=== PATIENT | male | born 1945 | race Caucasian/White ===

== ENCOUNTER → 2016-12-12 | Outpatient (CLI) | payer MEDICARE, OTHER ==
[~2016-12-12] VITALS: Ht 185.4 cm; Wt 115.2 kg
[~2016-12-12] MED LIST: ALLO100T PO; ATEN100T PO; ATOR40TA PO; CYCL10TA PO; LIDOCAINE 2% INJ 100 MG/5 ML SDV (FOR ANES.) As Ordered ONE; LISI-542 PO; NEXI20CA PO; NS 1,000 ML IV SCH; PROPOFOL 200 MG/20 ML VIAL As Ordered ONE; TRAM50TA2 PO
--- NOTE | 2016-12-12 12:14 | ROOR ---
Patient Name: Barry Taylor Procedure Date: 12/12/2016 11:54 AM Date of : 1945 Age: 71 Room: [facility] Gender: Male Note Status: Finalized Procedure: Colonoscopy Indications: High risk colon cancer surveillance: Personal history of colonic polyps, Last colonoscopy: July 2013 Providers: Usman GIVENS MD Referring MD: [facility], [employer] [facility] [employer] [facility], Admin., [facility], [facility], [facility], Admin. Requesting Provider: Medicines: Monitored Anesthesia Care Complications: No immediate complications. Procedure: Pre-Anesthesia Assessment: - The heart rate, respiratory rate, oxygen saturations, blood pressure, adequacy of pulmonary ventilation, and response to care were monitored throughout the procedure. The Colonoscope was introduced through the anus and advanced to the terminal ileum, with identification of the appendiceal orifice and IC valve. The colonoscopy was performed without difficulty. The patient tolerated the procedure well. The quality of the bowel preparation was good. Findings: The perianal and digital rectal examinations were normal. (Exam: Complete, Prep: Good or Excellent.) A few diverticula were found in the sigmoid colon. Small Internal Hemorrhoids. The entire examined colon appeared normal on direct and retroflexion views. Impression: - Mild diverticulosis in the sigmoid colon. - Small Internal Hemorrhoids. - The entire colon is normal on direct and retroflexion views. - No specimens collected. Recommendation: - Repeat colonoscopy in 5 years for adenoma surveillance. Usman Givens MD Usman GIVENS MD 12/12/2016 12:14:15 PM This report has been signed electronically. Number of Addenda: 0 Note Initiated On: 12/12/2016 11:54 AM Estimated Blood Loss: Estimated blood loss: none.
[2016-12-12 12:35] VITALS: BP 122/87
== END | disposition home or self-care (01) ==
LOC: M OPP 10:09
PROVIDERS: ATTEND Internal Medicine Gastroenterology
DX: Z12.11 Encounter for screening for malignant neoplasm of colon (principal); K57.30 Diverticulosis of large intestine without perforation or abscess without bleeding; K64.8 Other hemorrhoids; Z86.010 Personal history of colon polyps; I10 Essential (primary) hypertension; E78.5 Hyperlipidemia, unspecified; M10.9 Gout, unspecified; R12 Heartburn; M19.90 Unspecified osteoarthritis, unspecified site; M54.9 Dorsalgia, unspecified; Z79.899 Other long term (current) drug therapy; Z80.42 Family history of malignant neoplasm of prostate
CPT/HCPCS: 99156; G0105

== ENCOUNTER → 2017-09-17 | Outpatient (REF) | payer MEDICARE, OTHER ==
[~2017-09-17] MED LIST changes: -ATOR40TA PO; +ATOR40TA75 PO; -LIDOCAINE 2% INJ 100 MG/5 ML SDV (FOR ANES.) As Ordered ONE; -NS 1,000 ML IV SCH; -PROPOFOL 200 MG/20 ML VIAL As Ordered ONE
[2017-09-17 14:57] LABS: BASO # 0.1 10^3/uL (0.0-0.2); BASO % 1.2 % (0.0-1.0); EOS # 0.1 10^3/uL (0.0-0.50); EOS % 1.9 % (0.0-3.0); IMMATURE GRANULOCYTE % 0.8 % (0-0); LYMPH # 1.3 10^3/uL (1.5-4.5); LYMPH % 27.3 % (24.0-44.0); MEAN CORPUSCULAR HEMOGLOBIN 31.5 pg (27.0-33.0); MEAN CORPUSCULAR VOLUME 92.6 fl (80.0-96.0); MONO # 0.5 10^3/uL (0.0-0.8); MONO % 9.3 % (0.0-5.0); NEUTROPHILS # 2.9 10^3/uL (1.8-7.7); NEUTROPHILS % 59.5 % (36.0-66.0); PLATELET COUNT, AUTOMATED 276 10^3/uL (150-450); RED CELL DISTRIBUTION WIDTH 12.1 % (11.5-14.5); WHITE BLOOD COUNT 4.8 10^3/uL (4.0-10.0)
[2017-09-17 15:25] LABS: ALBUMIN/GLOBULIN RATIO 1.18 (1.00-1.93); ALKALINE PHOSPHATASE 91 U/L (45-117); ALT/SGPT 27 U/L (12-78); ANION GAP 10 MEQ/L (8-16); AST/SGOT 26 U/L (7-37); BILIRUBIN,TOTAL 0.9 MG/DL (0.2-1.0); BLOOD UREA NITROGEN 16 MG/DL (7-18); CALCIUM LEVEL 8.3 MG/DL (8.8-10.2); CARBON DIOXIDE LEVEL 26 MEQ/L (21-32); CHLORIDE LEVEL 103 MEQ/L (98-107); CHOLESTEROL LEVEL 154 MG/DL (<200); GLOMERULAR FILTRATION RATE > 60.0 (>42); GLUCOSE, FASTING 93 MG/DL (83-110); POTASSIUM SERUM 3.9 MEQ/L (3.5-5.1); SODIUM LEVEL 139 MEQ/L (136-145); TOTAL PROTEIN 7.4 GM/DL (6.4-8.2); TRIGLYCERIDES LEVEL 178 MG/DL (<150)
== END ==
LOC: M SFHCSACK 10:43
PROVIDERS: ATTEND Physician Assistant
DX: I10 Essential (primary) hypertension (principal); E78.5 Hyperlipidemia, unspecified; Z13.21 Encounter for screening for nutritional disorder; Z12.5 Encounter for screening for malignant neoplasm of prostate; Z79.899 Other long term (current) drug therapy
CPT/HCPCS: 80053; 80061; 82306; 85025; G0103

== ENCOUNTER 2017-11-17 16:59 | Emergency (ER) | payer MEDICARE, OTHER | END 2017-11-17 21:40 | disposition home or self-care (01) | LOC: M ED 16:59 | DX: I10 Essential (primary) hypertension (principal); E78.9 Disorder of lipoprotein metabolism, unspecified; K21.9 Gastro-esophageal reflux disease without esophagitis; M10.9 Gout, unspecified; Z79.899 Other long term (current) drug therapy | CPT/HCPCS: 93005 ==

== ENCOUNTER → 2018-05-04 | Outpatient (REF) | payer MEDICARE, OTHER ==
[2018-05-04 14:37] LABS: BASO # 0.1 10^3/uL (0.0-0.2); EOS # 0.1 10^3/uL (0.0-0.50); EOS % 2.3 % (0.0-3.0); HEMOGLOBIN 14.4 g/dl (13.5-17.5); IMMATURE GRANULOCYTE % 0.4 % (0-3.0); LYMPH # 1.7 10^3/uL (1.5-4.5); LYMPH % 32.7 % (24.0-44.0); MEAN CORPUSCULAR HEMOGLOBIN 30.4 pg (27.0-33.0); MEAN CORPUSCULAR HGB CONC 33.5 g/dl (32.0-36.5); MEAN CORPUSCULAR VOLUME 90.7 fl (80.0-96.0); MONO # 0.5 10^3/uL (0.0-0.8); NEUTROPHILS # 2.8 10^3/uL (1.8-7.7); NEUTROPHILS % 54.6 % (36.0-66.0); PLATELET COUNT, AUTOMATED 248 10^3/uL (150-450); RED BLOOD COUNT 4.74 10^6/uL (4.30-6.10); RED CELL DISTRIBUTION WIDTH 13.2 % (11.5-14.5); WHITE BLOOD COUNT 5.1 10^3/uL (4.0-10.0)
[2018-05-04 15:09] LABS: ALBUMIN 3.8 GM/DL (3.2-5.2); ALBUMIN/GLOBULIN RATIO 1.23 (1.00-1.93); ALKALINE PHOSPHATASE 82 U/L (45-117); ALT/SGPT 21 U/L (12-78); ANION GAP 8 MEQ/L (8-16); AST/SGOT 21 U/L (7-37); BILIRUBIN,TOTAL 0.9 MG/DL (0.2-1.0); BLOOD UREA NITROGEN 14 MG/DL (7-18); CALCIUM LEVEL 8.9 MG/DL (8.8-10.2); CARBON DIOXIDE LEVEL 29 MEQ/L (21-32); CHLORIDE LEVEL 107 MEQ/L (98-107); CREATININE FOR GFR 0.93 MG/DL (0.70-1.30); GLOMERULAR FILTRATION RATE > 60.0 (>42); GLUCOSE, FASTING 94 MG/DL (70-100); SODIUM LEVEL 144 MEQ/L (136-145); TOTAL PROTEIN 6.9 GM/DL (6.4-8.2)
[2018-05-04 15:12] LABS: POTASSIUM SERUM 5.3 MEQ/L (3.5-5.1)
[2018-05-04 15:22] LABS: TOTAL 25(OH) VITAMIN D 38.1 NG/ML (30.0-100.0)
== END ==
LOC: M SFHCSACK 08:45
DX: E78.5 Hyperlipidemia, unspecified (principal); I10 Essential (primary) hypertension; E55.9 Vitamin D deficiency, unspecified; Z79.899 Other long term (current) drug therapy
CPT/HCPCS: 80053

== ENCOUNTER → 2018-12-07 | Outpatient (REF) | payer MEDICARE, OTHER ==
[~2018-12-07] MED LIST changes: +OMEP10CASR PO; +TYLE1TAB5 PO
[2018-12-07 15:00] LABS: BASO # 0.1 10^3/uL (0.0-0.2); BASO % 0.8 % (0.0-1.0); EOS # 0.1 10^3/uL (0.0-0.50); HEMATOCRIT 45.6 % (42.0-52.0); HEMOGLOBIN 15.4 g/dl (13.5-17.5); LYMPH # 1.8 10^3/uL (1.5-4.5); LYMPH % 29.7 % (24.0-44.0); MEAN CORPUSCULAR HEMOGLOBIN 30.3 pg (27.0-33.0); MEAN CORPUSCULAR HGB CONC 33.8 g/dl (32.0-36.5); MEAN CORPUSCULAR VOLUME 89.8 fl (80.0-96.0); MONO # 0.5 10^3/uL (0.0-0.8); NEUTROPHILS # 3.6 10^3/uL (1.8-7.7); NEUTROPHILS % 60.2 % (36.0-66.0); PLATELET COUNT, AUTOMATED 314 10^3/uL (150-450); RED BLOOD COUNT 5.08 10^6/uL (4.30-6.10)
[2018-12-07 15:04] LABS: ALT/SGPT 31 U/L (12-78); BILIRUBIN,TOTAL 1.2 MG/DL (0.2-1.0); BLOOD UREA NITROGEN 12 MG/DL (7-18); CALCIUM LEVEL 9.2 MG/DL (8.8-10.2); CARBON DIOXIDE LEVEL 28 MEQ/L (21-32); CHLORIDE LEVEL 103 MEQ/L (98-107); CHOLESTEROL LEVEL 140 MG/DL (<200); CHOLESTEROL RISK RATIO 2.916 (<5); CREATININE FOR GFR 1.02 MG/DL (0.70-1.30); GLOMERULAR FILTRATION RATE > 60.0 (>42); GLUCOSE, FASTING 109 MG/DL (70-100); HDL CHOLESTEROL 48 MG/DL (>40); LDL CHOLESTEROL 62 MG/DL (<100); NON-HDL-C 92 MG/DL; POTASSIUM SERUM 4.5 MEQ/L (3.5-5.1); SODIUM LEVEL 140 MEQ/L (136-145); TOTAL PROTEIN 7.1 GM/DL (6.4-8.2); TRIGLYCERIDES LEVEL 150 MG/DL (<150)
[2018-12-07 15:14] LABS: TOTAL 25(OH) VITAMIN D 51.6 NG/ML (30.0-100.0)
== END ==
LOC: M SFHCSACK 11:20
PROVIDERS: ATTEND Physician Assistant
DX: I10 Essential (primary) hypertension (principal); E78.5 Hyperlipidemia, unspecified; E55.9 Vitamin D deficiency, unspecified; E66.9 Obesity, unspecified; Z68.33 Body mass index [BMI] 33.0-33.9, adult

== ENCOUNTER → 2019-08-04 | Outpatient (REF) | payer MEDICARE, OTHER ==
[2019-08-04 14:20] LABS: BASO # 0.1 10^3/uL (0.0-0.2); BASO % 1.1 % (0.0-1.0); EOS # 0.1 10^3/uL (0.0-0.5); EOS % 2.2 % (0.0-3.0); HEMATOCRIT 44.1 % (42.0-52.0); HEMOGLOBIN 14.3 g/dl (13.5-17.5); LYMPH # 1.4 10^3/uL (1.5-5.0); LYMPH % 31.5 % (24.0-44.0); MEAN CORPUSCULAR HEMOGLOBIN 30.8 pg (27.0-33.0); MEAN CORPUSCULAR HGB CONC 32.4 g/dl (32.0-36.5); MEAN CORPUSCULAR VOLUME 94.8 fl (80.0-96.0); MONO # 0.4 10^3/uL (0.0-0.8); MONO % 9.2 % (0.0-5.0); NEUTROPHILS # 2.5 10^3/uL (1.5-8.5); NEUTROPHILS % 55.6 % (36.0-66.0); PLATELET COUNT, AUTOMATED 235 10^3/uL (150-450); RED BLOOD COUNT 4.65 10^6/uL (4.30-6.10); WHITE BLOOD COUNT 4.5 10^3/uL (4.0-10.0)
[2019-08-04 14:25] LABS: ALBUMIN 3.6 GM/DL (3.2-5.2); ALT/SGPT 19 U/L (12-78); BILIRUBIN,TOTAL 0.9 MG/DL (0.2-1.0); BLOOD UREA NITROGEN 14 MG/DL (7-18); CALCIUM LEVEL 8.3 MG/DL (8.8-10.2); CARBON DIOXIDE LEVEL 30 MEQ/L (21-32); CHLORIDE LEVEL 105 MEQ/L (98-107); CHOLESTEROL LEVEL 149 MG/DL (<200); CHOLESTEROL RISK RATIO 2.614 (<5); CREATININE FOR GFR 0.96 MG/DL (0.70-1.30); GLOMERULAR FILTRATION RATE > 60.0 (>42); GLUCOSE, FASTING 94 MG/DL (70-100); HDL CHOLESTEROL 57 MG/DL (>40); LDL CHOLESTEROL 55 MG/DL (<100); NON-HDL-C 92 MG/DL; POTASSIUM SERUM 4.1 MEQ/L (3.5-5.1); SODIUM LEVEL 141 MEQ/L (136-145); TOTAL PROTEIN 6.5 GM/DL (6.4-8.2); TRIGLYCERIDES LEVEL 184 MG/DL (<150)
[2019-08-04 14:34] LABS: TOTAL 25(OH) VITAMIN D 26.7 NG/ML (30.0-100.0)
== END ==
LOC: M SFHCSACK 09:44
PROVIDERS: ATTEND Physician Assistant
DX: E55.9 Vitamin D deficiency, unspecified (principal); E78.5 Hyperlipidemia, unspecified; I10 Essential (primary) hypertension; Z80.42 Family history of malignant neoplasm of prostate
CPT/HCPCS: 36415; 80053; 80061; 82306; 85025; G0103

== ENCOUNTER → 2022-03-01 | Outpatient (CLI) | payer MEDICARE, OTHER ==
[~2022-03-01] MED LIST changes: +CYCL-707 PO; -CYCL10TA PO; -LISI-542 PO; +LISI5TAB11 PO
[2022-03-01 11:21] LABS: HEMATOCRIT 41.2 % (42.0-52.0); HEMOGLOBIN 13.5 g/dl (13.5-17.5); MEAN CORPUSCULAR HEMOGLOBIN 31.3 pg (27.0-33.0); MEAN CORPUSCULAR HGB CONC 32.8 g/dl (32.0-36.5); MEAN CORPUSCULAR VOLUME 95.6 fl (80.0-96.0); PLATELET COUNT, AUTOMATED 306 10^3/uL (150-450); RED BLOOD COUNT 4.31 10^6/uL (4.30-6.10); WHITE BLOOD COUNT 7.2 10^3/uL (4.0-10.0)
[2022-03-01 12:11] LABS: CALCIUM LEVEL 9.3 MG/DL (8.8-10.2); CREATININE FOR GFR 1.4 MG/DL (0.70-1.30); GLOMERULAR FILTRATION RATE 52.5 (>42); POTASSIUM SERUM 4.6 MEQ/L (3.5-5.1)
[2022-03-01 14:47] LABS: HEMOGLOBIN A1c 6.1 %
== END ==
LOC: M LAB 10:33
PROVIDERS: ATTEND Family Medicine
DX: Z01.818 Encounter for other preprocedural examination (principal); E11.9 Type 2 diabetes mellitus without complications

== ENCOUNTER → 2022-03-24 | Outpatient (CLI) | payer MEDICARE, OTHER ==
[~2022-03-24] MED LIST changes: +COLC0.6T47 PO; +HYDR12.55 PO; +LISI20TA33 PO; +OMEP40CA5 PO
== END ==
LOC: M LABSMTC 09:22
PROVIDERS: ATTEND Anesthesiology
DX: Z01.818 Encounter for other preprocedural examination (principal); Z11.52 Encounter for screening for COVID-19

== ENCOUNTER 2022-03-28 09:58 | Day surgery (SDC) | payer MEDICARE, OTHER ==
[~2022-03-28] VITALS: Ht 185.4 cm; Wt 109.7 kg
[~2022-03-28 09:58] MED LIST changes: +NS 1,000 ML IV ONE
[2022-03-28] MEDS ORDERED: propofoL 500 MG/50 ML VIAL As Ordered ONE (12:12)
[2022-03-28 12:50] VITALS: BP 110/71
== END 2022-03-28 12:57 | disposition home or self-care (01) ==
LOC: M OPP 09:58
PROVIDERS: ATTEND Internal Medicine Gastroenterology
DX: Z12.11 Encounter for screening for malignant neoplasm of colon (principal); Z86.010 Personal history of colon polyps; D12.2 Benign neoplasm of ascending colon; K57.30 Diverticulosis of large intestine without perforation or abscess without bleeding; K64.8 Other hemorrhoids; Z79.02 Long term (current) use of antithrombotics/antiplatelets; Z79.891 Long term (current) use of opiate analgesic; Z79.899 Other long term (current) drug therapy; Z80.42 Family history of malignant neoplasm of prostate

== ENCOUNTER 2022-06-03 17:32 | Emergency (ER) | payer MEDICARE, OTHER ==
[~2022-06-03] VITALS: Ht 185.4 cm; Wt 104.1 kg
[~2022-06-03 17:32] MED LIST changes: -NS 1,000 ML IV ONE
[2022-06-03 18:48] LABS: BASO # 0.1 10^3/uL (0.0-0.2); BASO % 0.4 % (0.0-1.0); EOS # 0.1 10^3/uL (0.0-0.5); EOS % 0.4 % (0.0-3.0); HEMATOCRIT 33.7 % (42.0-52.0); HEMOGLOBIN 11.2 g/dl (13.5-17.5); LYMPH # 0.9 10^3/uL (1.5-5.0); LYMPH % 6.2 % (24.0-44.0); MEAN CORPUSCULAR HEMOGLOBIN 29.8 pg (27.0-33.0); MEAN CORPUSCULAR HGB CONC 33.2 g/dl (32.0-36.5); MEAN CORPUSCULAR VOLUME 89.6 fl (80.0-96.0); MONO # 0.9 10^3/uL (0.0-0.8); MONO % 6.1 % (2.0-8.0); NEUTROPHILS # 11.9 10^3/uL (1.5-8.5); NEUTROPHILS % 85.4 % (36.0-66.0); PLATELET COUNT, AUTOMATED 493 10^3/uL (150-450); RED BLOOD COUNT 3.76 10^6/uL (4.30-6.10)
[2022-06-03 19:03] LABS: CREATININE FOR GFR 1.38 MG/DL (0.70-1.30); GLOMERULAR FILTRATION RATE 53.3 (>42); POTASSIUM SERUM 4.5 MEQ/L (3.5-5.1)
[2022-06-03 19:24] LABS: CK-MB VALUE MASS 6.3 NG/ML (<3.6); MB/CK RELATIVE INDEX 9.4 (< OR =4)
[2022-06-03] MEDS ORDERED: HEPARIN DRIP 25,000 UNITS in IV 1 EA IV SCH (19:50)
[2022-06-03] MEDS ORDERED: HEPARIN SOD (PORCINE) 5000UNITS/ML 1ML VIAL/SYRINGE IV ONE (19:50)
[2022-06-03] MEDS ORDERED: NS 1,000 ML IV ONE (20:15)
[2022-06-03 20:28] LABS: ALBUMIN 3.1 GM/DL (3.2-5.2); BILIRUBIN,DIRECT 0.4 MG/DL (0.0-0.2); BILIRUBIN,TOTAL 0.5 MG/DL (0.2-1.0); TOTAL PROTEIN 6.5 GM/DL (6.4-8.2)
[2022-06-03 20:48] LABS: INR 1.1; PROTHROMBIN TIME 14.6 SECONDS (12.7-14.5)
[2022-06-03 21:06] LABS: RSV AMPLIFICATION NEGATIVE (NEGATIVE)
[2022-06-03 21:17] VITALS: BP 111/73
== END 2022-06-03 21:31 | disposition short-term general hospital (02) ==
LOC: M ED 17:32
DX: I21.4 Non-ST elevation (NSTEMI) myocardial infarction (principal); E78.5 Hyperlipidemia, unspecified; K21.9 Gastro-esophageal reflux disease without esophagitis; I10 Essential (primary) hypertension; M10.9 Gout, unspecified; Z79.811 Long term (current) use of aromatase inhibitors; Z79.899 Other long term (current) drug therapy
CPT/HCPCS: 71045; 80048; 80076; 82550; 82553; 84484; 85025; 85610; 87631; 93005; 93041; 94760; 96365; 96375; 99285; J1644

== ENCOUNTER → 2022-09-17 | Outpatient (CLI) | payer MEDICARE, OTHER ==
[~2022-09-17] MED LIST changes: +ACET-1349 PO; +AMOX875T2; +ASPI81CH33 PO; +BRIL90TA PO; +NITR0.4S14 SL
[2022-09-17 12:26] LABS: BASO % 0.2 % (0.0-1.0); EOS % 0.3 % (0.0-3.0); HEMATOCRIT 36.4 % (42.0-52.0); LYMPH # 0.6 10^3/uL (1.5-5.0); LYMPH % 5.9 % (24.0-44.0); MEAN CORPUSCULAR HEMOGLOBIN 26.6 pg (27.0-33.0); MEAN CORPUSCULAR HGB CONC 30.2 g/dl (32.0-36.5); MEAN CORPUSCULAR VOLUME 88.1 fl (80.0-96.0); MONO # 1.1 10^3/uL (0.0-0.8); MONO % 11.3 % (2.0-8.0); NEUTROPHILS # 7.7 10^3/uL (1.5-8.5); NEUTROPHILS % 81.1 % (36.0-66.0); PLATELET COUNT, AUTOMATED 325 10^3/uL (150-450); RED BLOOD COUNT 4.13 10^6/uL (4.30-6.10); WHITE BLOOD COUNT 9.5 10^3/uL (4.0-10.0)
[2022-09-17 12:52] LABS: ALBUMIN 3.2 G/DL (3.2-5.2); ALKALINE PHOSPHATASE 129 U/L (46-116); ALT/SGPT 10 U/L (7.0-40); AST/SGOT 15 U/L (<34); BILIRUBIN,TOTAL 0.8 MG/DL (0.3-1.2); BLOOD UREA NITROGEN 15 MG/DL (9-23); CALCIUM LEVEL 9.5 MG/DL (8.3-10.6); CARBON DIOXIDE LEVEL 26 MMOL/L (20-31); CHLORIDE LEVEL 101 MMOL/L (98-107); GLOMERULAR FILTRATION RATE > 60.0 (>42); GLUCOSE, FASTING 135 MG/DL (74-106); POTASSIUM SERUM 4.3 MMOL/L (3.5-5.1); SODIUM LEVEL 138 MMOL/L (136-145); TOTAL PROTEIN 7.2 G/DL (5.7-8.2)
[2022-09-17 12:54] LABS: THYROID STIMULATING HORMONE 1.782 uIU/ML (0.55-4.78)
[2022-09-17 14:04] LABS: ERYTHROCYTE SEDIMENTATION RATE 70 mm/hr (0-20)
== END ==
LOC: M PLALAB 10:50
PROVIDERS: ATTEND Physician Assistant
DX: R05.1 Acute cough (principal); R50.9 Fever, unspecified

== ENCOUNTER → 2022-10-16 | Outpatient (CLI) | payer MEDICARE, OTHER ==
[~2022-10-16] MED LIST changes: -ACET-1349 PO; -AMOX875T2; -ASPI81CH33 PO; -BRIL90TA PO; -NITR0.4S14 SL
[2022-10-16 15:13] LABS: APPEARANCE, URINE MANUAL CLEAR (CLEAR); COLOR, URINE MANUAL YELLOW (YELLOW)
[2022-10-16 15:14] LABS: BILIRUBIN, URINE MANUAL NEGATIVE (NEGATIVE); GLUCOSE, URINE (UA) MANUAL NEGATIVE (NEGATIVE); KETONE, URINE MANUAL NEGATIVE (NEGATIVE); PROTEIN, URINE MANUAL NEGATIVE (NEGATIVE); UROBILINOGEN, URINE MANUAL NORMAL (NORMAL)
[2022-10-16 15:15] LABS: BLOOD URINE MANUAL NEGATIVE (NEGATIVE); LEUKOCYTE ESTERASE, URINE MAN NEGATIVE (NEGATIVE); NITRITE, URINE MANUAL NEGATIVE (NEGATIVE)
[2022-10-16 15:21] LABS: BASO % 0.3 % (0.0-1.0); EOS % 0.1 % (0.0-3.0); HEMATOCRIT 38.6 % (42.0-52.0); LYMPH # 0.4 10^3/uL (1.5-5.0); LYMPH % 3.5 % (24.0-44.0); MEAN CORPUSCULAR HEMOGLOBIN 27.6 pg (27.0-33.0); MEAN CORPUSCULAR HGB CONC 31.1 g/dl (32.0-36.5); MEAN CORPUSCULAR VOLUME 88.7 fl (80.0-96.0); NEUTROPHILS # 8.7 10^3/uL (1.5-8.5); PLATELET COUNT, AUTOMATED 343 10^3/uL (150-450); RED BLOOD COUNT 4.35 10^6/uL (4.30-6.10); WHITE BLOOD COUNT 10.2 10^3/uL (4.0-10.0)
[2022-10-16 15:28] LABS: ALBUMIN 3.6 G/DL (3.2-5.2); ALKALINE PHOSPHATASE 144 U/L (46-116); ALT/SGPT 12 U/L (7.0-40); AST/SGOT 16 U/L (<34); BILIRUBIN,TOTAL 0.8 MG/DL (0.3-1.2); BLOOD UREA NITROGEN 16 MG/DL (9-23); CALCIUM LEVEL 9.4 MG/DL (8.3-10.6); CARBON DIOXIDE LEVEL 26 MMOL/L (20-31); CHLORIDE LEVEL 99 MMOL/L (98-107); CREATININE FOR GFR 1.08 MG/DL (0.70-1.30); GLOMERULAR FILTRATION RATE > 60.0 (>42); GLUCOSE, FASTING 129 MG/DL (74-106); POTASSIUM SERUM 3.8 MMOL/L (3.5-5.1); SODIUM LEVEL 136 MMOL/L (136-145); TOTAL PROTEIN 7.3 G/DL (5.7-8.2)
== END ==
LOC: M PLALAB 13:40
PROVIDERS: ATTEND Physician Assistant
DX: R50.9 Fever, unspecified (principal)

== ENCOUNTER → 2022-11-01 | Outpatient (CLI) | payer MEDICARE, OTHER ==
[~2022-11-01] MED LIST changes: +ISOVUE-370 76% 100ML VIAL As Ordered ONE
== END ==
LOC: M RAD 13:10
PROVIDERS: ATTEND Physician Assistant
DX: R50.9 Fever, unspecified (principal)
CPT/HCPCS: 71260; 74177; Q9967

== ENCOUNTER → 2022-11-20 | Outpatient (REF) | payer MEDICARE, OTHER ==
[~2022-11-20] MED LIST changes: +ACET-1349 PO; +AMOX875T2; +ASPI81CH33 PO; +BRIL90TA PO; -ISOVUE-370 76% 100ML VIAL As Ordered ONE; +NITR0.4S14 SL
[2022-11-20 13:33] LABS: APPEARANCE, URINE CLEAR (CLEAR); BILIRUBIN, URINE AUTO NEGATIVE (NEGATIVE); BLOOD, URINE BLOOD NEGATIVE (NEGATIVE); COLOR, URINE YELLOW (YELLOW); GLUCOSE, URINE (UA) AUTO NEGATIVE (NEGATIVE); KETONE, URINE AUTO NEGATIVE (NEGATIVE); LEUKOCYTE ESTERASE, URINE AUTO NEGATIVE (NEGATIVE); NITRITE, URINE AUTO NEGATIVE (NEGATIVE); PROTEIN, URINE AUTO NEGATIVE (NEGATIVE); SPECIFIC GRAVITY URINE AUTO 1.016 (1.002-1.035); UROBILINOGEN, URINE AUTO 0.2 mg/dL (0.0-2.0)
[2022-11-20 13:35] LABS: BACTERIA, URINE AUTO NEGATIVE (NEGATIVE); MUCUS, URINE SMALL (NEGATIVE); RBC, URINE AUTO 0 /HPF (0-3); SQUAMOUS EPITHELIAL CELL UR AU 1 /HPF (0-6); WBC, URINE AUTO 2 /HPF (0-3)
== END ==
LOC: M SFHCPLAZ 12:50
PROVIDERS: ATTEND Physician Assistant
DX: Z01.818 Encounter for other preprocedural examination (principal)

== ENCOUNTER 2022-11-22 11:11 | Day surgery (SDC) | payer MEDICARE, OTHER ==
[~2022-11-22] VITALS: Ht 185.4 cm; Wt 91.7 kg
[~2022-11-22 11:11] MED LIST changes: -ASPI81CH33 PO; +CelecoXIB 400 MG CAP PO ONE; -NITR0.4S14 SL; +ceFAZolin SOD 2 GM in IV 1 EA IV ONE
[2022-11-22] MEDS ORDERED: LIDOCAINE 2% 100MG/5ML SDV (FOR ANES.) As Ordered ONE (11:35)
[2022-11-22] MEDS ORDERED: MIDAZOLAM INJ 2MG/2ML VIAL As Ordered ONE (11:35)
[2022-11-22] MEDS ORDERED: propofoL 200 MG/20 ML VIAL As Ordered ONE (11:35)
[2022-11-22] MEDS ORDERED: fentaNYL 100 MCG/2 ML INJECTION As Ordered ONE (11:36)
[2022-11-22] MEDS ORDERED: NITR0.4S14 SL (11:37)
[2022-11-22] MEDS ORDERED: ASPI81CH33 PO (11:37)
[2022-11-22] MEDS ORDERED: BUPIVACAINE HCL 0.25% 30ML VIAL As Ordered ONE (12:36)
[2022-11-22] MEDS ORDERED: LIDOCAINE W/EPINEPHRINE 1% 20ML VIAL As Ordered ONE (12:36)
[2022-11-22] MEDS ORDERED: LIDOCAINE 1% SDV 30ML VIAL As Ordered ONE (12:36)
[2022-11-22] MEDS ORDERED: ePHEDrine SULFATE 25 MG/5 ML(5MG/ML) SYRINGE As Ordered ONE ×2 (13:27→13:42)
[2022-11-22] MEDS ORDERED: ACETAMINOPHEN 1000MG 100ML IV BAG As Ordered ONE (13:45)
[2022-11-22] MEDS ORDERED: ONDANSETRON 4MG 2ML VIAL IV PRN (14:00)
[2022-11-22] MEDS ORDERED: MEPERIDINE 25 MG/ML 1ML VIAL IV PRN (14:00)
[2022-11-22] MEDS ORDERED: oxyCODONE 5MG TAB PO PRN (14:00)
[2022-11-22] MEDS ORDERED: fentaNYL 100 MCG/2 ML INJECTION IV PRN (14:00)
[2022-11-22] MEDS ORDERED: LR 1,000 ML IV SCH (14:00)
[2022-11-22] MEDS ORDERED: NORCO, ANEXSIA 5/325MG TABLET (HYDROcodone/ACETAMINOPHEN) PO PRN ×2 (14:30)
[2022-11-22 15:04] VITALS: BP 104/66
[2022-11-22] MEDS ORDERED: ACETAMINOPHEN TAB 650MG DOSE (2X325MG) PO PRN (18:00)
[2022-11-22] MEDS ORDERED: KETOROLAC 30 MG/ML 1ML VIAL IV SCH (18:00)
== END 2022-11-22 15:26 | disposition home or self-care (01) ==
LOC: M SDC 11:11
PROVIDERS: ATTEND Surgery
DX: R59.0 Localized enlarged lymph nodes (principal); I25.2 Old myocardial infarction; Z98.61 Coronary angioplasty status; M10.9 Gout, unspecified; K21.9 Gastro-esophageal reflux disease without esophagitis; Z79.899 Other long term (current) drug therapy; Z79.82 Long term (current) use of aspirin
CPT/HCPCS: 38531; 87428; 88305; J0131; J0690; J2250; J3010

== ENCOUNTER → 2022-12-20 | Outpatient (CLI) | payer MEDICARE, OTHER ==
[~2022-12-20] MED LIST changes: +ASPI81CH33 PO; -CelecoXIB 400 MG CAP PO ONE; +NITR0.4S14 SL; +ONDA-84 PO; +PROC10TA5 PO; -ceFAZolin SOD 2 GM in IV 1 EA IV ONE
== END ==
LOC: M LABSMTC 11:10
PROVIDERS: ATTEND Anesthesiology
DX: Z01.812 Encounter for preprocedural laboratory examination (principal)

== ENCOUNTER → 2022-12-23 | Outpatient (CLI) | payer MEDICARE, OTHER ==
[~2022-12-23] VITALS: Ht 185.4 cm; Wt 88.9 kg
[~2022-12-23] MED LIST changes: +LIDOCAINE 1% MDV 20ML VIAL As Ordered ONE; +MIDAZOLAM INJ 2MG/2ML VIAL As Ordered ONE; +NS 1,000 ML IV SCH; +ceFAZolin 2 GM/D5W 50 ML IV BAG As Ordered ONE; +ceFAZolin SOD 2 GM in IV 1 EA IV ONE; +diphenhydrAMINE 50MG/ML VIAL As Ordered ONE; +fentaNYL 100 MCG/2 ML INJECTION As Ordered ONE
[2022-12-23 15:50] VITALS: BP 114/68
== END ==
LOC: M IRPRO 11:47
PROVIDERS: ATTEND Specialist
DX: R59.1 Generalized enlarged lymph nodes (principal)
CPT/HCPCS: 36561; 99152; 99153; C1769; C1788; C1894; J0690; J1642; J1644; J2250; J3010

== ENCOUNTER → 2023-01-07 | Outpatient (POV) | payer MEDICARE, OTHER ==
[~2023-01-07] VITALS: Ht 185.4 cm; Wt 88.1 kg
[~2023-01-07] MED LIST changes: +LACT10SO3 PO; +LIDO1CRE42 TOP; -LIDOCAINE 1% MDV 20ML VIAL As Ordered ONE; -MIDAZOLAM INJ 2MG/2ML VIAL As Ordered ONE; -NS 1,000 ML IV SCH; +TRAZ-252 PO; -ceFAZolin 2 GM/D5W 50 ML IV BAG As Ordered ONE; -ceFAZolin SOD 2 GM in IV 1 EA IV ONE; -diphenhydrAMINE 50MG/ML VIAL As Ordered ONE; -fentaNYL 100 MCG/2 ML INJECTION As Ordered ONE
[2023-01-07 14:10] VITALS: BP 135/87
== END ==
LOC: M IRPOV 13:55
PROVIDERS: ATTEND Radiology Diagnostic Radiology
DX: Z45.2 Encounter for adjustment and management of vascular access device (principal)

== ENCOUNTER → 2023-01-10 | Outpatient (CLI) | payer MEDICARE, OTHER | LOC: M RAD 14:49 | PROVIDERS: ATTEND Specialist | DX: C81.90 Hodgkin lymphoma, unspecified, unspecified site (principal) ==

== ENCOUNTER → 2023-01-13 | Outpatient (CLI) | payer MEDICARE, OTHER | LOC: M CARPUL 12:42 | PROVIDERS: ATTEND Specialist | DX: R59.9 Enlarged lymph nodes, unspecified (principal) ==

== ENCOUNTER 2023-02-18 16:30 | Inpatient (IN) | payer MEDICARE, OTHER ==
[~2023-02-18] VITALS: Ht 185.4 cm; Wt 80.2 kg
[~2023-02-18 16:30] MED LIST changes: +CIPR-249 PO; +MAGICMW SSP; +OLAN1TAB16 PO; +POTA-298 PO; +metroNIDAZOLE 500 MG in IV 1 EA IV SCH
[2023-02-18 18:49] VITALS: BP 124/78
[2023-02-18] MEDS ORDERED: SODIUM CHLORIDE 0.9% 1000ML IV SCH (19:45)
[2023-02-18] MEDS ORDERED: HYDROMORPHONE HCL 0.5 MG/ 0.5 ML SYRINGE IV PRN (19:45)
[2023-02-18 20:45] VITALS: BP 128/72
[2023-02-18] MEDS ORDERED: NS 500 ML IV ONE (20:55)
[2023-02-18] MEDS ORDERED: TICAGRELOR 90 MG TABLET (BRILINTA) PO ONE (20:55)
[2023-02-18] MEDS: NS 1,000 ML IV SCH (21:32)
[2023-02-19] VITALS (8 sets, daily range): BP systolic 101–125; BP diastolic 59–75
[2023-02-19] MEDS: RAMELTEON 8 MG TAB (ROZEREM) PO SCH ×2 (00:30→22:47)
[2023-02-19] MEDS: NYSTATIN 500,000U/5ML SUSP UDC SS SCH ×4 (00:30→19:27)
[2023-02-19] MEDS: ULTRACET TAB PO PRN ×2 (00:31→11:04)
[2023-02-19] MEDS: PANTOPRAZOLE 40MG VIAL IV SCH ×3 (00:37→22:46)
[2023-02-19] MEDS ORDERED: DOCU100C16 PO (00:44)
[2023-02-19] MEDS ORDERED: CYCL10TA20 PO (00:44)
[2023-02-19] MEDS ORDERED: NEXI20CA33 PO (00:44)
[2023-02-19] MEDS ORDERED: HOME MED LIST COMPLETE! XX SCH (00:45)
[2023-02-19] MEDS ORDERED: metroNIDAZOLE 500 MG in IV 1 EA IV SCH (01:00)
[2023-02-19] MEDS: FLUCONAZOLE 100 MG in IV 1 EA IV SCH (02:33)
[2023-02-19] MEDS ORDERED: CIPROFLOXACIN 400 MG in IV 1 EA IV ONE (03:00)
[2023-02-19 06:13] LABS: HEMATOCRIT 21.2 % (42.0-52.0); HEMOGLOBIN 7.3 g/dl (13.5-17.5); MEAN CORPUSCULAR HEMOGLOBIN 27.9 pg (27.0-33.0); MEAN CORPUSCULAR HGB CONC 34.4 g/dl (32.0-36.5); MEAN CORPUSCULAR VOLUME 80.9 fl (80.0-96.0); PLATELET COUNT, AUTOMATED 220 10^3/uL (150-450); RED BLOOD COUNT 2.62 10^6/uL (4.30-6.10)
[2023-02-19 06:18] LABS: WHITE BLOOD COUNT 0.6 10^3/uL (4.0-10.0)
[2023-02-19 06:38] LABS: BLOOD UREA NITROGEN 11 MG/DL (9-23); CALCIUM LEVEL 7.8 MG/DL (8.3-10.6); CARBON DIOXIDE LEVEL 23 MMOL/L (20-31); CHLORIDE LEVEL 99 MMOL/L (98-107); CREATININE FOR GFR 0.78 MG/DL (0.70-1.30); GLOMERULAR FILTRATION RATE > 60.0 (>42); GLUCOSE, FASTING 135 MG/DL (74-106); POTASSIUM SERUM 3.8 MMOL/L (3.5-5.1); SODIUM LEVEL 132 MMOL/L (136-145)
[2023-02-19] MEDS: FILGRASTIM 480 MCG/0.8 ML SYRINGE **SC ADMINISTRATION ONLY SC SCH (09:05)
[2023-02-19] MEDS: NS 1,000 ML IV SCH ×2 (09:05→19:27)
[2023-02-19] MEDS: FIDAXOMICIN 200 MG TAB (DIFICID) PO SCH ×2 (09:05→22:47)
[2023-02-19 09:28] LABS: OSMOLALITY SERUM 268 MOSM/KG (280-301)
[2023-02-19] MEDS ORDERED: traMADol 50 MG TAB PO PRN ×2 (13:25)
[2023-02-19] MEDS ORDERED: CYCLOBENZAPRINE 10MG TABLET PO PRN (13:25)
[2023-02-19] MEDS ORDERED: ONDANSETRON 4MG TAB PO PRN (13:25)
[2023-02-19] MEDS ORDERED: EMLA CREAM 5GM TUBE (LIDOCAINE/PRILOCAINE) TOP PRN (13:25)
[2023-02-19] MEDS ORDERED: DOCUSATE SODIUM 100MG CAPSULE PO PRN (13:25)
[2023-02-19] MEDS: ATORVASTATIN 20 MG TAB PO SCH (14:58)
[2023-02-19] MEDS: TICAGRELOR 90 MG TABLET (BRILINTA) PO SCH ×2 (14:58→22:47)
[2023-02-19] MEDS: ASPIRIN 81MG CHEW TABLET PO SCH (14:59)
[2023-02-19] MEDS: atenoloL 50 MG TAB PO SCH (14:59)
[2023-02-19] MEDS ORDERED: CIPROFLOXACIN 400 MG in IV 1 EA IV SCH (15:00)
[2023-02-19] MEDS ORDERED: OLANZapine 5 MG TAB PO SCH (21:00)
[2023-02-19] MEDS: HEPARIN SOD (PORCINE) 5000UNITS/ML 1ML VIAL/SYRINGE SQ SCH (22:46)
[2023-02-20] MEDS: FLUCONAZOLE 100 MG in IV 1 EA IV SCH (02:56)
[2023-02-20 04:09] VITALS: BP 128/58
[2023-02-20] MEDS: NYSTATIN 500,000U/5ML SUSP UDC SS SCH ×4 (05:48→11:25)
[2023-02-20] MEDS: HEPARIN SOD (PORCINE) 5000UNITS/ML 1ML VIAL/SYRINGE SQ SCH (05:48)
[2023-02-20] MEDS: NS 1,000 ML IV SCH (05:48)
[2023-02-20 06:14] LABS: HEMATOCRIT 21.8 % (42.0-52.0); HEMOGLOBIN 7.3 g/dl (13.5-17.5); MEAN CORPUSCULAR HEMOGLOBIN 27.7 pg (27.0-33.0); MEAN CORPUSCULAR HGB CONC 33.5 g/dl (32.0-36.5); MEAN CORPUSCULAR VOLUME 82.6 fl (80.0-96.0); PLATELET COUNT, AUTOMATED 298 10^3/uL (150-450); RED BLOOD COUNT 2.64 10^6/uL (4.30-6.10); WHITE BLOOD COUNT 2.3 10^3/uL (4.0-10.0)
[2023-02-20 06:37] LABS: BLOOD UREA NITROGEN 8 MG/DL (9-23); CALCIUM LEVEL 7.8 MG/DL (8.3-10.6); CARBON DIOXIDE LEVEL 24 MMOL/L (20-31); CHLORIDE LEVEL 104 MMOL/L (98-107); CREATININE FOR GFR 0.82 MG/DL (0.70-1.30); GLOMERULAR FILTRATION RATE > 60.0 (>42); GLUCOSE, FASTING 88 MG/DL (74-106); MAGNESIUM LEVEL 1.2 MG/DL (1.8-2.4); PHOSPHORUS LEVEL 1.8 MG/DL (2.4-5.1); POTASSIUM SERUM 3.6 MMOL/L (3.5-5.1); SODIUM LEVEL 135 MMOL/L (136-145)
[2023-02-20 07:06] LABS: ANISOCYTOSIS 2+; ATYPICAL LYMPH 2 % (0-5); BASOPHILS 1 % (0-1); LYMPHOCYTES 16 % (16-44); MONOCYTES 8 % (0-5); NEUTROPHILS 65 % (28-66); PLATELET ESTIMATE NORMAL (NORMAL); POIKILOCYTOSIS 1+
[2023-02-20 07:07] LABS: OVALOCYTES 1+; POLYCHROMASIA 1+
[2023-02-20 08:00] VITALS: BP 100/54
[2023-02-20 09:00] VITALS: BP 100/54
[2023-02-20] MEDS ORDERED: SODIUM CHLORIDE 0.9% INJ 10 ML SYR IV SCH (09:00)
[2023-02-20] MEDS: atenoloL 50 MG TAB PO SCH (09:00)
[2023-02-20] MEDS ORDERED: E-Z-PAQUE 96% w/w SUSP 176GM BTL As Ordered ONE (09:11)
[2023-02-20] MEDS ORDERED: BARIUM SULFATE 700 MG TABLET (E-Z-DISK) As Ordered ONE (09:11)
[2023-02-20] MEDS ORDERED: VARIBAR NECTAR 40% w/v 240ML SUSP BTL As Ordered ONE (09:11)
[2023-02-20] MEDS ORDERED: VARIBAR PUDDING 40% w/v 230ML TUBE As Ordered ONE (09:11)
[2023-02-20] MEDS: MAG SULF 1GM/100ML (MAG RUN) 1 GM in IV 1 EA IV SCH ×3 (09:41→14:05)
[2023-02-20] MEDS: ATORVASTATIN 20 MG TAB PO SCH (09:41)
[2023-02-20] MEDS: PANTOPRAZOLE 40MG VIAL IV SCH (09:41)
[2023-02-20] MEDS: FIDAXOMICIN 200 MG TAB (DIFICID) PO SCH (09:42)
[2023-02-20] MEDS: TICAGRELOR 90 MG TABLET (BRILINTA) PO SCH (09:42)
[2023-02-20] MEDS: ASPIRIN 81MG CHEW TABLET PO SCH (09:42)
[2023-02-20] MEDS ORDERED: SODIUM PHOSPHATE INJ 20 MMOL in D5W 250 ML IV ONE (10:00)
[2023-02-20] MEDS ORDERED: FIDA200TA PO (10:09)
[2023-02-20] MEDS ORDERED: FLUC100T3 PO (10:09)
[2023-02-20] MEDS: FILGRASTIM 480 MCG/0.8 ML SYRINGE **SC ADMINISTRATION ONLY SC SCH (11:16)
[2023-02-20 12:00] VITALS: BP 102/57
[2023-02-20] MEDS ORDERED: MAGNESIUM SULFATE 1GM/100ML D5W BAG (10MG/ML) As Ordered ONE (14:03)
[2023-02-24] MEDS ORDERED: ROLLMIS8 XX (14:28)
== END 2023-02-20 15:30 | disposition home or self-care (01) | DRG 372 ==
LOC: M PCU 18:50
PROVIDERS: ADMIT Family Medicine; ATTEND Family Medicine
DX: A04.72 Enterocolitis due to Clostridium difficile, not specified as recurrent (principal); C81.90 Hodgkin lymphoma, unspecified, unspecified site; E87.1 Hypo-osmolality and hyponatremia; B37.81 Candidal esophagitis; A04.4 Other intestinal Escherichia coli infections; R63.4 Abnormal weight loss; I25.10 Atherosclerotic heart disease of native coronary artery without angina pectoris; K21.9 Gastro-esophageal reflux disease without esophagitis; M10.9 Gout, unspecified; R13.10 Dysphagia, unspecified; D64.81 Anemia due to antineoplastic chemotherapy; T45.1X5A Adverse effect of antineoplastic and immunosuppressive drugs, initial encounter; E83.39 Other disorders of phosphorus metabolism; Z92.21 Personal history of antineoplastic chemotherapy; Z95.2 Presence of prosthetic heart valve; D70.1 Agranulocytosis secondary to cancer chemotherapy; Z79.899 Other long term (current) drug therapy; Z79.82 Long term (current) use of aspirin

== ENCOUNTER → 2023-03-04 | Outpatient (CLI) | payer MEDICARE, OTHER ==
[~2023-03-04] MED LIST changes: +CYCL10TA20 PO; +DOCU100C16 PO; +FIDA200TA PO; +FLUC100T3 PO; +NEXI20CA33 PO; +ROLLMIS8 XX; -metroNIDAZOLE 500 MG in IV 1 EA IV SCH
== END ==
LOC: M CARPUL 11:42
PROVIDERS: ATTEND Specialist
DX: I50.1 Left ventricular failure, unspecified (principal); C81.90 Hodgkin lymphoma, unspecified, unspecified site

== ENCOUNTER → 2023-04-21 | Outpatient (CLI) | payer MEDICARE, OTHER ==
[~2023-04-21] MED LIST changes: +ATEN25TA PO; +LACT20EL PO; -LIDO1CRE42 TOP; +LIDO30CR18 TOP
== END ==
LOC: M PLARAD 11:44
PROVIDERS: ATTEND Internal Medicine Hematology & Oncology
DX: C81.95 Hodgkin lymphoma, unspecified, lymph nodes of inguinal region and lower limb (principal)
CPT/HCPCS: 78815; A9552

== ENCOUNTER → 2023-06-20 | Outpatient (CLI) | payer MEDICARE, OTHER | LOC: M RAD 11:31 | PROVIDERS: ATTEND Nurse Practitioner | DX: M79.89 Other specified soft tissue disorders (principal) ==

== ENCOUNTER → 2023-11-03 | Outpatient (CLI) | payer MEDICARE, OTHER ==
[~2023-11-03] MED LIST changes: +GABA-1171 PO
== END ==
LOC: M PLARAD 08:22
PROVIDERS: ATTEND Nurse Practitioner
DX: C81.95 Hodgkin lymphoma, unspecified, lymph nodes of inguinal region and lower limb (principal)
CPT/HCPCS: 78815; A9552

== ENCOUNTER → 2023-11-12 | Outpatient (REF) | payer MEDICARE, OTHER ==
[~2023-11-12] MED LIST changes: +GABA-282 PO; +GABA600T4 PO
[2023-11-12 09:44] LABS: CHOLESTEROL RISK RATIO 2.55 (<5); HDL CHOLESTEROL 50.9 MG/DL (>40); LDL CHOLESTEROL 61.5 MG/DL (<100); NON-HDL-C 79.1 MG/DL
== END ==
LOC: M LAB REF 08:50
PROVIDERS: ATTEND Nurse Practitioner Family
DX: I25.10 Atherosclerotic heart disease of native coronary artery without angina pectoris (principal)

== ENCOUNTER → 2023-12-25 | Outpatient (CLI) | payer MEDICARE, OTHER | LOC: M RAD 09:22 | PROVIDERS: ATTEND Family Medicine | DX: I73.9 Peripheral vascular disease, unspecified (principal); R59.0 Localized enlarged lymph nodes ==

== ENCOUNTER → 2024-02-25 | Outpatient (CLI) | payer MEDICARE, OTHER ==
[~2024-02-25] MED LIST changes: +GABA-284 PO
== END ==
LOC: M RAD 09:22
PROVIDERS: ATTEND Family Medicine
DX: R59.0 Localized enlarged lymph nodes (principal)

== ENCOUNTER → 2024-06-08 | Outpatient (CLI) | payer MEDICARE, OTHER ==
[~2024-06-08] MED LIST changes: +FAMO1TAB11 PO; +GABA-1490 PO; -GABA600T4 PO; +META28.32 PO; +NEUR600T PO
== END ==
LOC: M RAD 10:23
PROVIDERS: ATTEND Dietitian, Registered
DX: C81.90 Hodgkin lymphoma, unspecified, unspecified site (principal)

== ENCOUNTER 2024-06-28 11:18 | Day surgery (SDC) | payer MEDICARE, OTHER ==
[~2024-06-28] VITALS: Ht 185.4 cm; Wt 98.0 kg
[~2024-06-28 11:18] MED LIST changes: +LR 1,000 ML IV SCH
[2024-06-28] MEDS: TETRACAINE 0.5% OPHTH SOLN 4ML OD SCH (12:13)
[2024-06-28] MEDS: ATROPINE SULFATE 1% OPHTH SOLN 2ML BTL OD SCH (12:13)
[2024-06-28] MEDS: PHENYLEPHRINE 2.5% OPHTH SOL 2ML OD SCH (12:13)
[2024-06-28] MEDS: FLURBIPROFEN 0.03% OPHTH SOLN 2.5 ML OD SCH (12:13)
[2024-06-28] MEDS ORDERED: NAPR500T6 PO (12:21)
[2024-06-28] MEDS ORDERED: MIDAZOLAM INJ 2MG/2ML VIAL As Ordered ONE (12:24)
[2024-06-28] MEDS ORDERED: fentaNYL 100 MCG/2 ML INJECTION As Ordered ONE (12:25)
[2024-06-28] MEDS: LIDOCAINE 1% SDV 5ML VIAL As Ordered ONE (13:49)
[2024-06-28] MEDS: CEFUROXIME 1MG/0.1ML INTRACAMERAL INJ As Ordered ONE (13:49)
[2024-06-28 14:19] VITALS: BP 115/74; TEMP 97.3; O2SAT 96
== END 2024-06-28 14:45 | disposition home or self-care (01) ==
LOC: M SDC 11:18
PROVIDERS: ATTEND Ophthalmology
DX: H25.11 Age-related nuclear cataract, right eye (principal); I10 Essential (primary) hypertension; I25.10 Atherosclerotic heart disease of native coronary artery without angina pectoris; I25.2 Old myocardial infarction; Z98.61 Coronary angioplasty status; M10.9 Gout, unspecified; D64.9 Anemia, unspecified; E78.5 Hyperlipidemia, unspecified; Z79.82 Long term (current) use of aspirin; Z79.899 Other long term (current) drug therapy
CPT/HCPCS: 66984; J0697; J2250; J3010; V2787

== ENCOUNTER → 2024-07-14 | Outpatient (CLI) | payer MEDICARE, OTHER ==
[~2024-07-14] MED LIST changes: +GABA-1172 PO; -GABA-282 PO; +LIDOCAINE 1% MDV 20ML VIAL As Ordered ONE; -LR 1,000 ML IV SCH; +NAPR-1405 PO
[2024-07-14 08:27] VITALS: TEMP 97.2
[2024-07-14 08:58] VITALS: BP 132/82; O2SAT 98
== END ==
LOC: M IRPRO 07:51
PROVIDERS: ATTEND Dietitian, Registered
DX: C81.90 Hodgkin lymphoma, unspecified, unspecified site (principal)

== ENCOUNTER → 2024-08-09 | Outpatient (CLI) | payer MEDICARE, OTHER ==
[~2024-08-09] MED LIST changes: -LIDOCAINE 1% MDV 20ML VIAL As Ordered ONE
== END ==
LOC: M PLARAD 11:16
PROVIDERS: ATTEND Internal Medicine Hematology & Oncology
DX: C81.98 Hodgkin lymphoma, unspecified, lymph nodes of multiple sites (principal)
CPT/HCPCS: 78815; A9552

== ENCOUNTER → 2024-12-14 | Outpatient (CLI) | payer MEDICARE, OTHER ==
[~2024-12-14] MED LIST changes: -LACT10SO3 PO; +LACT10SO94 PO; +ONDA-84
== END ==
LOC: M PLARAD 07:26
PROVIDERS: ATTEND Nurse Practitioner Women's Health
DX: C81.98 Hodgkin lymphoma, unspecified, lymph nodes of multiple sites (principal)
CPT/HCPCS: 78815; A9552

== ENCOUNTER → 2025-06-07 | Outpatient (CLI) | payer MEDICARE, OTHER | LOC: M PLARAD 08:28 | DX: C81.98 Hodgkin lymphoma, unspecified, lymph nodes of multiple sites (principal) | CPT/HCPCS: 78815; A9552 ==

== ENCOUNTER → 2025-07-08 | Outpatient (CLI) | payer MEDICARE, OTHER ==
[~2025-07-08] MED LIST changes: -COLC0.6T47 PO; +COLC0.6T53 PO
== END ==
LOC: M RAD 14:58
PROVIDERS: ATTEND Family Medicine
DX: N28.1 Cyst of kidney, acquired (principal)

== ENCOUNTER → 2025-07-21 | Outpatient (CLI) | payer MEDICARE, OTHER ==
[~2025-07-21] MED LIST changes: +ISOVUE-370 76% 100 ML VIAL As Ordered ONE
== END ==
LOC: M RAD 12:39
PROVIDERS: ATTEND Physician Assistant
DX: R93.89 Abnormal findings on diagnostic imaging of other specified body structures (principal)

== ENCOUNTER → 2025-08-17 | Outpatient (CLI) | payer MEDICARE, OTHER ==
[~2025-08-17] MED LIST changes: -ISOVUE-370 76% 100 ML VIAL As Ordered ONE
[2025-08-17 14:08] LABS: PLATELET COUNT, AUTOMATED 236 10^3/uL (150-450)
[2025-08-17 14:36] LABS: CALCIUM LEVEL 9.4 MG/DL (8.3-10.6); CARBON DIOXIDE LEVEL 29.0 MMOL/L (20-31); CHLORIDE LEVEL 101.0 MMOL/L (98-107); CREATININE FOR GFR 1.28 MG/DL (0.70-1.30); GLOMERULAR FILTRATION RATE 56.9 (>42); POTASSIUM SERUM 5.5 MMOL/L (3.5-5.1); SODIUM LEVEL 139.0 MMOL/L (136-145)
== END ==
LOC: M PLALAB 11:17
PROVIDERS: ATTEND Physician Assistant
DX: Z01.818 Encounter for other preprocedural examination (principal); I51.7 Cardiomegaly

== ENCOUNTER 2025-09-13 07:12 | Day surgery (SDC) | payer MEDICARE, OTHER ==
[2025-09-13] VITALS (8 sets, daily range): BP systolic 95–138; BP diastolic 58–78; TEMP 98.2–98.8; O2SAT 91–99
[~2025-09-13] VITALS: Ht 185.4 cm; Wt 99.5 kg
[~2025-09-13 07:12] MED LIST changes: +ACETAMINOPHEN 1000MG/100ML IV BAG As Ordered ONE; +LIDOCAINE 2% 100 MG/5 ML SDV (FOR ANES.) As Ordered ONE; +ONDANSETRON 4MG/2ML VIAL As Ordered ONE; +PRES1CAP PO; +ROCURONIUM BROMIDE 50MG/5ML VIAL As Ordered ONE; +dexAMETHasone 4 MG/ML 1 ML VIAL As Ordered ONE; +dexmedeTOMIDine (4 MCG/ML) 200 MCG/50 ML BTL As Ordered ONE
[2025-09-13] MEDS ORDERED: ONDANSETRON 4MG/2ML VIAL IV PRN ×2 (07:50→12:00)
[2025-09-13] MEDS: LR 1,000 ML IV SCH (08:00)
[2025-09-13] MEDS: ceFAZolin SOD 2 GM IV ONCE IV ONE (08:33)
[2025-09-13] MEDS ORDERED: HYDROmorphone HCL 2 MG/ML 1 ML VIAL As Ordered ONE (09:03)
[2025-09-13] MEDS ORDERED: PHENYLephrine 500MCG 5ML (100MCG/ML) SYRINGE As Ordered ONE (09:34)
[2025-09-13] MEDS: MANNITOL 25% 12.5 GM/50 ML VIAL As Ordered ONE (10:21)
[2025-09-13] MEDS ORDERED: SUGAMMADEX SODIUM 200 MG/2 ML VIAL As Ordered ONE (10:27)
[2025-09-13] MEDS: LIDOCAINE 1% SDV 30 ML VIAL As Ordered ONE (11:50)
[2025-09-13] MEDS ORDERED: HYDROMORPHONE HCL 0.5 MG/0.5 ML SYRINGE IV PRN (12:00)
[2025-09-13] MEDS ORDERED: LR 1,000 ML IV SCH (12:00)
[2025-09-13 12:58] LABS: PLATELET COUNT, AUTOMATED 176 10^3/uL (150-450)
[2025-09-13 13:37] LABS: CALCIUM LEVEL 8.3 MG/DL (8.3-10.6); CARBON DIOXIDE LEVEL 27.0 MMOL/L (20-31); CHLORIDE LEVEL 105.0 MMOL/L (98-107); CREATININE FOR GFR 0.92 MG/DL (0.70-1.30); GLOMERULAR FILTRATION RATE 84.6 (>42); POTASSIUM SERUM 4.1 MMOL/L (3.5-5.1); SODIUM LEVEL 139.0 MMOL/L (136-145)
[2025-09-13] MEDS: ceFAZolin SOD 1 GM in DEXTROSE 5% (D5W) ADV/MINI-BAG 50 ML IV SCH (16:49)
[2025-09-13] MEDS: NS (Normal Saline) 0.9% 1,000 ML IV SCH (16:49)
[2025-09-13] MEDS: PERCOCET 5MG/325MG TAB PO PRN (17:04)
[2025-09-13] MEDS: DOCUSATE SODIUM 100 MG CAPSULE PO SCH (21:25)
[2025-09-13] MEDS ORDERED: TRAM50TA2 PO (21:59)
[2025-09-13] MEDS ORDERED: HOME MED LIST COMPLETE! XX SCH (22:00)
[2025-09-13] MEDS: GABAPENTIN 400 MG CAP PO SCH (23:49)
[2025-09-14 04:00] VITALS: BP 106/64; TEMP 98.8; O2SAT 96
[2025-09-14 06:03] LABS: PLATELET COUNT, AUTOMATED 192 10^3/uL (150-450)
[2025-09-14 06:23] LABS: CALCIUM LEVEL 8.2 MG/DL (8.3-10.6); CARBON DIOXIDE LEVEL 27.0 MMOL/L (20-31); CHLORIDE LEVEL 103.0 MMOL/L (98-107); CREATININE FOR GFR 0.97 MG/DL (0.70-1.30); GLOMERULAR FILTRATION RATE 79.4 (>42); POTASSIUM SERUM 4.3 MMOL/L (3.5-5.1); SODIUM LEVEL 138.0 MMOL/L (136-145)
[2025-09-14 08:00] VITALS: BP 110/65; TEMP 98.7; O2SAT 95
[2025-09-14 09:00] VITALS: BP 110/69
[2025-09-14] MEDS: OMEPRAZOLE 20MG CAP PO SCH (09:29)
[2025-09-14] MEDS: ASPIRIN 81 MG ENTERIC TABLET PO SCH (09:29)
[2025-09-14] MEDS: PERCOCET 5MG/325MG TAB PO PRN (09:30)
[2025-09-14] MEDS ORDERED: COLA100C5 PO (10:22)
[2025-09-14] MEDS ORDERED: PERCOCET PO (10:22)
[2025-09-14] MEDS ORDERED: CIPR-249 PO (10:22)
[2025-09-14] MEDS: ACETAMINOPHEN 325 MG TAB PO PRN (11:46)
[2025-09-14 12:00] VITALS: BP 119/68; TEMP 98.4; O2SAT 95
[2025-09-14] MEDS ORDERED: ATORVASTATIN 20 MG TAB PO SCH (21:00)
== END 2025-09-14 14:24 | disposition home or self-care (01) ==
LOC: M SDC 07:12 → M MS4PR 16:15 → M SDC 09-14 14:24
PROVIDERS: ATTEND Urology
DX: C64.1 Malignant neoplasm of right kidney, except renal pelvis (principal); I25.10 Atherosclerotic heart disease of native coronary artery without angina pectoris; I10 Essential (primary) hypertension; Z98.61 Coronary angioplasty status; I25.2 Old myocardial infarction; E78.5 Hyperlipidemia, unspecified; M10.9 Gout, unspecified; K21.9 Gastro-esophageal reflux disease without esophagitis; Z85.71 Personal history of Hodgkin lymphoma; G62.9 Polyneuropathy, unspecified; Z79.899 Other long term (current) drug therapy; Z79.82 Long term (current) use of aspirin
CPT/HCPCS: 36415; 50543; 52005; 80048; 84132; 85027; 86850; 86900; 86901; 88307; 96365; 96366; J0131; J0665; J0688; J0690; J1100; J1171; J2151; J2371; J2405; J3010; S2900